=== PATIENT | male | born 1955 | race Caucasian/White ===

== ENCOUNTER → 2023-10-24 | Outpatient (CLI) | payer OTHER ==
--- NOTE | 2023-10-24 11:31 | XR ---
EXAMINATION TYPE: XR cervical spine limited DATE OF EXAM: 10/24/2023 COMPARISON: NONE HISTORY: pain TECHNIQUE: Four views are submitted. FINDINGS: The odontoid is intact. There are no compression deformities. The prevertebral soft tissue structur es are within normal limits. Grade 1 anterolisthesis C4-C5 with severe degenerative disc disease C5- 6 and C6-C7. Multilevel facet arthropathy. IMPRESSION: 1. Multilevel severe degenerative disc disease with facet arthropathy. Consider follow-up MRI..
--- NOTE | 2023-10-24 11:35 | XR ---
EXAMINATION TYPE: XR shoulder complete LT DATE OF EXAM: 10/24/2023 COMPARISON: NONE HISTORY: Pain TECHNIQUE: Three views are submitted. FINDINGS: The osseous structures are intact. There is no acute fracture or dislocation. Moderate hypertrophic arthropathy of the AC joint.. IMPRESSION: 1. Moderate AC joint hypertrophic arthropathy correlate for impingement..
== END | disposition home or self-care (01) ==
LOC: RADXRMAIN 10:31
PROVIDERS: ATTEND Family Medicine
DX: M47.812 Spondylosis without myelopathy or radiculopathy, cervical region (principal); M50.30 Other cervical disc degeneration, unspecified cervical region; M19.012 Primary osteoarthritis, left shoulder
CPT/HCPCS: 72040